=== PATIENT | female | born 1965 | race Caucasian/White ===

== ENCOUNTER 2016-08-06 16:22 | Outpatient (CLI) | payer OTHER ==
--- NOTE | 2016-08-06 18:28 | DIAGNOSTIC IMAGING REPORT ---
PROCEDURE: CT ABDOMEN WITHOUT CONTRAST INDICATION: PAINFULL SCAR RULE OUT BLOCKAGE TECHNIQUE: Axial scans with and without Valsalva. Coronal and sagittal re-formations. COMPARISON: CT abdomen/pelvis 09/20/2015. FINDINGS: There is an 8 mm fat-containing incisional ventral hernia left of midline with slight progression with Valsalva. Lung base are clear. Heart size is normal. Liver three stable sub centimeter liver hypodensities, probable cysts. The gallbladder, pancreas, spleen, left adrenal gland and right kidney are normal. There is a 2 cm right adrenal mass which measures -4 Hounsfield units. Two nonobstructing left renal calculi, largest 3.5 mm. Mild atherosclerosis of the aorta. Stool throughout the visualized colon. Small bowel is unremarkable. No suspicious osseous lesions. IMPRESSION: 1. 8 mm fat-containing incisional ventral hernia left of midline 2. Nonobstructing left renal calculi 3. 2 cm right adrenal adenoma 4. Obstipation 5. Results discussed with Dr. Velasquez
== END 2016-08-06 23:00 ==
LOC: CT SRH 16:22
DX: L90.5 Scar conditions and fibrosis of skin (principal); D35.00 Benign neoplasm of unspecified adrenal gland; K43.2 Incisional hernia without obstruction or gangrene; N20.0 Calculus of kidney; K59.00 Constipation, unspecified
CPT/HCPCS: 90074; 92560; 92630

== ENCOUNTER 2016-09-16 15:58 | Outpatient (CLI) | payer OTHER ==
--- NOTE | 2016-09-16 16:50 | DIAGNOSTIC IMAGING REPORT ---
PROCEDURE: CT ABDOMEN/PELVIS W/O CONTRAST INDICATION: Right flank pain and hematuria x2 days. TECHNIQUE: Noncontrast axial images were obtained of the entire abdomen and pelvis with sagittal and coronal reformations. COMPARISON: CT abdomen 08/06/[address] abdomen/pelvis 09/20/2015.. FINDINGS: ABDOMEN: Normal right kidney and ureter. Two nonobstructing left renal calculi (1 - 3.5 mm ). Normal left ureter. Stable hepatic lesions, largest 6 mm. Gallbladder, pancreas, spleen and left adrenal gland are normal. Stable 2 cm right adrenal mass measuring -10 Hounsfield units consistent with an adenoma. Mild atherosclerosis of the aorta. 2 cm fat-containing incisional hernia left of midline (previously 8 mm). 1.5 cm umbilical hernia containing a knuckle of the large bowel. Large amount of stool. Lung bases are clear. Normal heart size. Bilateral breast implants. PELVIS: Normal appendix. Sigmoid suture line. Left uterine calcification. Adnexa and bladder are normal. No suspicious osseous lesions. IMPRESSION: 1. Normal appendix 2. Nonobstructing left renal calculi 3. Obstipation 4. 2 cm right adrenal adenoma 5. Progression of 2 cm fat-containing incisional hernia left of midline 6. Sigmoid suture line 7. Results discussed with Dr. Velasquez All CT scans at this facility use dose modulation, iterative reconstruction, and/or weight-based dosing when appropriate to reduce radiation dose to as low as reasonably achievable.
== END 2016-09-16 23:00 ==
LOC: CT SRH 15:58
DX: R10.9 Unspecified abdominal pain (principal); N20.0 Calculus of kidney; K59.00 Constipation, unspecified; D35.01 Benign neoplasm of right adrenal gland